=== PATIENT | male | born 1995 | race Caucasian/White ===

== ENCOUNTER 2021-10-29 06:35 | Emergency (ER) | payer OTHER | END 2021-10-29 07:30 | disposition home or self-care (01) | LOC: ED 06:35 | DX: T23.202A Burn of second degree of left hand, unspecified site, initial encounter (principal); X19.XXXA Contact with other heat and hot substances, initial encounter; Y93.89 Activity, other specified; Y92.89 Other specified places as the place of occurrence of the external cause; Y99.8 Other external cause status ==

== ENCOUNTER → 2024-09-24 | Outpatient (CLI) | payer OTHER | END | disposition home or self-care (01) | LOC: CARD 09:30 | PROVIDERS: ATTEND Family Medicine | DX: I51.7 Cardiomegaly (principal); I71.40 Abdominal aortic aneurysm, without rupture, unspecified; Z82.49 Family history of ischemic heart disease and other diseases of the circulatory system ==